=== PATIENT | female | born 1985 | race Caucasian/White ===

== ENCOUNTER 2016-06-23 18:50 | Emergency (ER) | payer SELFPAY ==
[2016-06-23 18:57] VITALS: BP 141/68; PULSE 120; TEMP 98; BMI 34.6
--- NOTE | 2016-06-23 19:51 | EDPRACDOC ---
- General Information Chief Complaint: Flu-Like Symptoms Stated Complaint: HEAD COLD CONGESTION LOWER BACK PAIN AROUND TO STO Time Seen by Provider: 06/23/16 19:45 Information Source: Patient Home Medications: Home Medications Cyclobenzaprine HCl [Flexeril] 10 mg PO TID PRN #20 tablet 06/23/16 Ibuprofen Tablet [Motrin] 800 mg PO TID PRN #30 tab 06/23/16 Promethazine Dextromethorphan [Phenergan DM] 5 ml PO Q6 PRN #120 ml 06/23/16 Allergies/Adverse Reactions: Allergies Allergy/AdvReac Type Severity Reaction Status Date / Time hydrocodone [Hydrocodone] Allergy Unknown Rash-Genera Verified 06/23/16 19:41 lized oxycodone [Oxycodone] Allergy Unknown Nausea/Vomi Verified 06/23/16 19:41 ting - History of Present Illness Onset: 2 days HPI: PT COMPLAINS OF NON-PROD COUGH, CONGESTION, "HOARSENESS", NO FEVER OR CHILLS, SYMPTOMS X 2 DAYS, ALSO COMPLAINS OF PAIN IN HER LOWER BACK THAT RADIATES AROUND TO HER ABDOMEN. STATES PAIN IS ACHING, WORSE WITH MOVEMENT AND LAYING DOWN STATES PAIN IS SEVERE. NO KNOWN INJURY, NO URINARY SYMPTOMS. Current Symptoms: Reports: Cough, Nasal Symptoms, Other (LOW BACK PAIN) Cough: Reports: Non-productive Rhinorrhea: Reports: Clear Ear Symptoms: Reports: None Fever Severity/Quality: Reports: no fever Oral Intake: Normal Urinary Output: Normal Relevant History of: Asthma Associated Signs & Symptoms:: Reports: Cough, Nasal Symptoms. Denies: Earache, Fever, Headache, Sore Throat, Nausea, Vomiting, Diarrhea, Myalgia, Rash, Pain with head movement, AMS ED Past Medical History - History Reviewed Yes Nurses notes reviewed and agree except as marked - Patient Medical History Respiratory History: Reports: Asthma GI/ History: Reports: Kidney Stones Psychological History: Denies: Depression Surgical History: Reports: Cholecystectomy, Other (BTL) - Social Medical History Smoking Status: Heavy tobacco smoker (5 or more cigarettes/day or daily pipe/ cigar) ETOH: None Substance Abuse: None EDM Review of Systems - Review of Systems Constitutional: negative: Chills, Fever Eyes: negative: Blurred Vision, Double Vision Ears: negative: Drainage Throat: negative: Pain Nose: Congestion. negative: Discharge Respiratory: Cough. negative: Shortness of Breath, Wheezing Cardiovascular: negative: Chest Pain, Palpitations Gastrointestinal: negative: Diarrhea, Nausea, Pain, Vomiting Genitourinary: negative: Dysuria, Frequency Neurological: negative: Dizziness, Headache, Numbness, Weakness Musculoskeletal: Back Integumentary: No Symptoms Reported - Physical Exam Constitutional: Alert (Awake), No apparent distress Oriented to: Time, Person, Place Last recorded Vital Signs: Last Vital Signs Temp 98.0 F 06/23/16 18:54 Pulse 120 H 06/23/16 18:54 Resp 20 06/23/16 18:54 BP 141/68 06/23/16 18:54 Pulse Ox 98 06/23/16 18:54 Oxygen Pulse Oxygen Saturation 98 O2 Device Room Air Oxygen Flow Rate Fraction of Inspired Oxygen ( FIO2) - HEENT Head: Normal ( normocephalic) Eye Exam: Normal (PERRL, EOMI, Sclera white) Oropharynx: Normal (Pharynx:Moist without exudate,Gums-no swelling) Tympanic Membrane: Dull ENT EAC: Normal TMJ: Normal Nose: No Symptoms Reported (septum midline) Neck: Normal (FROM, trachea at midline) - Respiratory/Cardiovascular Respiratory: Wheezes (FEW, SCATTERED). negative: Accessory Muscle Use, Retractions Cardiovascular: Normal (RRR without murmur, gallop or rub) - Musculoskeletal Back: Lumbar TTP. negative: Thoracic Step-off, Thoracic TTP Extremities: Normal (Normal tone, Pulses 2+ No cyanosis or edema, FROM) - Integumentary Skin: Normal, Warm, Dry Lymphatics: Normal (no adenopathy) - Neurologic Memory Impaired: Normal Motor Function: Normal (Normal tone, Pulses 2+ No cyanosis or edema, FROM) Cranial Nerve: Normal (CN II-X11 intact sensation, strength 5/5) Cerebellar: Normal Mood Description: Normal Perception: Normal - Differential Diagnosis Bronchitis, Pneumonia, Sinusitis, URI Decision Time to Discharge: 19:52 - Departure Disposition: Home Condition: Stable Final Diagnosis: URI (upper respiratory infection) Qualifiers: URI type: unspecified URI Qualified Code(s): J06.9 - Acute upper respiratory infection, unspecified Acute lumbar back pain Qualifiers: Back pain laterality: bilateral Sciatica presence: without sciatica Qualified Code(s): M54.5 - Low back pain Instructions: Back Pain, Upper Respiratory Infection (ED) Education/Counseling Given To: Patient Education/Counseling Given Regarding: Diagnosis, Treatment, Prognosis, Follow Up Referrals: Susie Rodrigues MD [Staff Physician] - One Week Prescriptions: Cyclobenzaprine HCl [Flexeril] 10 mg PO TID PRN #20 tablet PRN Reason: Muscle Spasms Ibuprofen Tablet [Motrin] 800 mg PO TID PRN #30 tab PRN Reason: Pain Promethazine Dextromethorphan [Phenergan DM] 5 ml PO Q6 PRN #120 ml PRN Reason: Cough Additional Instructions: REST, DRINK PLENTY OF FLUIDS, APPLY WARM COMPRESSES TO YOUR BACK 20 MINS AT A TIME 4 - 5 TIMES DAILY NEEDED FOR PAIN, RETURN TO THE ED FOR ANY WORSENING SYMPTOMS OR CONCERNS. ED Back Exam - Neurologic Motor Deficit: None - Musculoskeletal Cervical: Normal Thoracic: Normal Lumbar: Tender Midline: Tender Paraspinous: Tender Pelvis: Normal
[2016-06-23] MEDS ORDERED: IBUPROFEN 800 MG TAB PO ONE (19:54)
[2016-06-23] MEDS ORDERED: CYCLOBENZAPRINE 10 MG TAB PO ONE (19:54)
== END 2016-06-23 20:17 | disposition home or self-care (01) ==
LOC: EDMC 18:50
DX: J06.9 Acute upper respiratory infection, unspecified (principal); M54.5 Low back pain
CPT/HCPCS: 99282; J3490

== ENCOUNTER 2016-07-10 22:46 | Emergency (ER) | payer SELFPAY ==
[2016-07-10 22:47] VITALS: BMI 34.6
[2016-07-10 22:52] VITALS: BP 147/72; PULSE 119; TEMP 98.1
--- NOTE | 2016-07-10 22:57 | EDPRACDOC ---
- General Information Chief Complaint: Wound Stated Complaint: ? ABSCESS FRONT UPPER GUM AREA Time Seen by Provider: 07/10/16 22:56 Information Source: Patient Mode of Arrival:: Car Home Medications: Home Medications Cyclobenzaprine HCl [Flexeril] 10 mg PO TID PRN #20 tablet 06/23/16 Ibuprofen Tablet [Motrin] 800 mg PO TID PRN #30 tab 06/23/16 Promethazine Dextromethorphan [Phenergan DM] 5 ml PO Q6 PRN #120 ml 06/23/16 Penicillin V Potassium 500 mg PO QID #30 tablet 07/10/16 Allergies/Adverse Reactions: Allergies Allergy/AdvReac Type Severity Reaction Status Date / Time hydrocodone [Hydrocodone] Allergy Unknown Rash-Genera Verified 06/23/16 19:41 lized oxycodone [Oxycodone] Allergy Unknown Nausea/Vomi Verified 06/23/16 19:41 ting - History of Present Illness 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 PT presents with pain and nausea. min facial swelling. no rash. no F/C. Last Tetanus: Yes Relevent History Of: Denies: Diabetes Prior Abscess: Reports: None Pain: Reports: Mild Quality: Reports: Draining Associated Signs & Symptoms: Denies: Chills, Fever ED Past Medical History - History Reviewed Yes Nurses notes reviewed and agree except as marked - Patient Medical History Respiratory History: Reports: Asthma GI/ History: Reports: Kidney Stones Psychological History: Denies: Depression Surgical History: Reports: Cholecystectomy, Other (BTL). Denies: Hysterectomy - Social Medical History Smoking Status: Heavy tobacco smoker (5 or more cigarettes/day or daily pipe/ cigar) EDM Review of Systems - Review of Systems ROS Negative Except as Marked: Yes All systems reviewed and were negative except as marked - Physical Exam Constitutional: Alert (Awake), No apparent distress Oriented to: Time, Person, Place Last recorded Vital Signs: Last Vital Signs Temp 98.1 F 07/10/16 22:49 Pulse 119 07/10/16 22:49 Resp 20 07/10/16 22:49 BP 147/72 07/10/16 22:49 Pulse Ox 98 07/10/16 22:49 Oxygen Pulse Oxygen Saturation 98 O2 Device Room Air Oxygen Flow Rate Fraction of Inspired Oxygen ( FIO2) - HEENT Head: Normal ( normocephalic) Eye Exam: Normal (PERRL, EOMI, Sclera white) Oropharynx: Other (R upper lateral incisor with caries and associated open area of abscess with active drainage. min TTP. no bleeding. no facial erythema with minimal swelling. no trismus.) Tympanic Membrane: Normal ENT EAC: Normal TMJ: Normal Nose: No Symptoms Reported (septum midline) Neck: Normal (FROM, trachea at midline) - Respiratory/Cardiovascular Respiratory: Normal - CTA (BBS clear to auscultation without adventitious sounds ) Cardiovascular: Normal (RRR without murmur, gallop or rub) - GI Auscultation: Normal (NABS) Palpation: Normal (Soft,No rebound or guarding, non distended) Tenderness: Non tender Jefferson's Sign: Negative - Musculoskeletal Back: Normal (Non-Tender) Extremities: Normal (Normal tone, Pulses 2+ No cyanosis or edema, FROM) - Integumentary Skin: Normal, Warm, Dry Lymphatics: Normal (no adenopathy) - Neurologic Memory Impaired: Normal Motor Function: Normal (Normal tone, Pulses 2+ No cyanosis or edema, FROM) Cranial Nerve: Normal (CN II-X11 intact sensation, strength 5/5) Cerebellar: Normal Mood Description: Normal Perception: Normal - Re-evaluation Re-evaluation 1 Re-evaluation Time: 23:01 (plan viscous lido, zofran and d/c home Rx ABx and f/ u DDS one week. Ptagrees to instructions and precautions. ) Decision Time to Discharge: 23:02 - Departure Yes I personally saw and evaluated the patient. Disposition: Home Condition: Stable Final Diagnosis: Abscess Instructions: Dental Abscess (ED) Referrals: None,No Provider [Primary Care Provider] - One Week Prescriptions: New Penicillin V Potassium 500 mg PO QID #30 tablet No Action Cyclobenzaprine HCl [Flexeril] 10 mg PO TID PRN #20 tablet PRN Reason: Muscle Spasms Ibuprofen Tablet [Motrin] 800 mg PO TID PRN #30 tab PRN Reason: Pain Promethazine Dextromethorphan [Phenergan DM] 5 ml PO Q6 PRN #120 ml PRN Reason: Cough
[2016-07-10] MEDS ORDERED: LIDOCAINE 2% VISCOUS ORAL 15 ML PO ONE (22:58)
[2016-07-10] MEDS ORDERED: ONDANSETRON HCL 4 MG ODT TAB PO ONE (22:58)
== END 2016-07-11 00:04 | disposition home or self-care (01) ==
LOC: ED 22:46
DX: K05.219 Aggressive periodontitis, localized, unspecified severity (principal)
CPT/HCPCS: 99283; J2001; J3490